=== PATIENT | female | born 1940 | race Caucasian/White ===

== ENCOUNTER → 2017-02-06 | Outpatient (CLI) | payer OTHER ==
[~2017-02-06] MED LIST: ARIMIDEX1 MG PO; ASPIR 8181 M1 PO; CALCIUM 600 +1 EA15 PO; COLACE100 MG PO; COMPAZINE10 MG PO; DECADRON4 MG PO; HYZAAR 100-21 TABLET PO; K-DUR10 MEQ PO; LEVOXYL88 MCG PO; NORVASC5 MG PO; ONDANSETRON HCL8 MG PO; PRAVACHOL20 MG PO; PRILOSEC40 MG PO; SYNTHROID75 MCG PO; TRAMADOL HCL50 MG PO
== END | disposition home or self-care (01) ==
LOC: NUC 09:41
DX: R93.7 Abnormal findings on diagnostic imaging of other parts of musculoskeletal system (principal); Z96.653 Presence of artificial knee joint, bilateral; M25.551 Pain in right hip
CPT/HCPCS: 78315; A9503

== ENCOUNTER → 2017-08-10 | Outpatient (CLI) | payer OTHER | END | disposition home or self-care (01) | LOC: CDC 11:44 | DX: Z01.810 Encounter for preprocedural cardiovascular examination (principal); G56.02 Carpal tunnel syndrome, left upper limb; R94.31 Abnormal electrocardiogram [ECG] [EKG] | CPT/HCPCS: 93000 ==

== ENCOUNTER 2017-09-17 12:40 | Day surgery (SDC) | payer OTHER ==
[~2017-09-17] VITALS: Ht 165.1 cm; Wt 72.6 kg
[~2017-09-17 12:40] MED LIST changes: +LEVOTHYROXINE88 MCG PO
[2017-09-17 12:59] VITALS: BP 136/73
[2017-09-17 17:30] VITALS: BP 141/63
[2017-09-17 18:00] VITALS: BP 145/66
== END 2017-09-17 18:10 | disposition home or self-care (01) ==
LOC: SDC 12:40
PROC: 01N50ZZ Release Median Nerve, Open Approach (ICD-10-PCS; principal; 2017-09-17)
DX: G56.02 Carpal tunnel syndrome, left upper limb (principal); E03.9 Hypothyroidism, unspecified; I10 Essential (primary) hypertension; E78.5 Hyperlipidemia, unspecified; K21.9 Gastro-esophageal reflux disease without esophagitis; Z85.3 Personal history of malignant neoplasm of breast; Z90.12 Acquired absence of left breast and nipple; Z79.82 Long term (current) use of aspirin; Z87.891 Personal history of nicotine dependence
CPT/HCPCS: J0690; J1100; J2405; S0020